=== PATIENT | female | born 1965 ===

== ENCOUNTER → 2025-02-23 | Day surgery (SDC) | payer OTHER ==
[~2025-02-23] VITALS: Ht 154.9 cm; Wt 61.2 kg
[~2025-02-23] MED LIST: CEFAZOLIN SODIUM 1,000 MG VIAL IV ONE; CHLORHEXIDINE GLUCONATE 120 ML BOTTLE TOP ONE; LIDOCAINE HCL 1%/EPINEPHRINE 20ML VIAL IJ ONE; MACROBID 100 M100 MG PO; TRAM1TAB98 PO
== END | disposition home or self-care (01) ==
LOC: ADM 02-18 09:00 → CIR.AMB 05:28
PROVIDERS: ATTEND Obstetrics & Gynecology Gynecology
DX: N39.3 Stress incontinence (female) (male) (principal)
CPT/HCPCS: 57288; C1771